=== PATIENT | female | born 1975 | race Caucasian/White ===

== ENCOUNTER → 2017-01-24 | Outpatient (REF) | payer OTHER ==
[~2017-01-24] MED LIST: FOLITAB11 PO; NORCOTAB PO; OMEP40CA2 PO; ORTHTAB6 PO; PERCOCET PO; TIZA4CAP3 PO; ZOFR20TA PO
== END ==
LOC: M SFHCLERA 16:44
PROVIDERS: ATTEND Family Medicine
DX: Z12.4 Encounter for screening for malignant neoplasm of cervix (principal)